=== PATIENT | female | born 1940 | race Hispanic/Latino ===

== ENCOUNTER 2020-02-01 10:41 | Emergency (ER) | payer MEDICARE ==
[~2020-02-01] VITALS: Ht 152.4 cm; Wt 65.8 kg
[2020-02-01] MEDS ORDERED: SODIUM CHLORIDE 0.9% 1000ML 1,000 ML IV STA (10:43)
[2020-02-01] MEDS ORDERED: ASPIRIN 81 MG CHEW TAB PO ONE (10:45)
[2020-02-01 10:52] LABS: BASOPHILS # (AUTO) 0.1 (0.0-0.1); BASOPHILS % 0.8 % (0.0-1.0); EOSINOPHILS # (AUTO) 0.3 (0.0-0.4); EOSINOPHILS % 2.2 % (0.0-6.0); HEMATOCRIT 38.7 % (34.2-44.1); LYMPHOCYTES # (AUTO) 1.9 (1.0-3.2); LYMPHOCYTES % 16.1 % (18.0-39.1); MEAN CORPUSCULAR HEMOGLOBIN 29.1 pg (28-32); MEAN CORPUSCULAR HGB CONC 33.6 g/dL (31-35); MEAN CORPUSCULAR VOLUME 86.6 fL (81-99); MONOCYTES # (AUTO) 0.6 (0.2-0.8); MONOCYTES % 5.2 % (4.4-11.3); NEUTROPHILS % 75.1 % (38.7-80.0); PLATELET COUNT 381 x10e3/uL (140-360); RED BLOOD COUNT 4.47 x10e6/uL (3.6-5.1); RED CELL DISTRIBUTION WIDTH 15.2 % (11.7-14.4)
[2020-02-01 11:07] LABS: CLARITY,URINE CLEAR (CLEAR); COLOR,URINE YELLOW (YELLOW)
[2020-02-01 11:08] LABS: BILIRUBIN,URINE NEGATIVE (NEGATIVE); KETONES,URINE NEGATIVE (NEGATIVE); LEUKOCYTE ESTERASE ,URINE NEGATIVE (NEGATIVE); NITRITE,URINE NEGATIVE (NEGATIVE); PROTEIN,URINE DIPSTICK NEGATIVE (NEGATIVE); URINE UROBILINOGEN 0.2 mg/dL (0.2 - 1)
[2020-02-01 11:10] LABS: ALANINE AMINOTRANSFERASE 15 IU/L (0-55); ALBUMIN 4.3 g/dL (3.5-5.0); ALBUMIN/GLOBULIN RATIO 1.1 (0.8-2.0); ALKALINE PHOSPHATASE 74 IU/L (40-150); ANION GAP 14.2 mmol/L (8-16); BLOOD UREA NITROGEN 13 mg/dL (7-26); BUN/CREATININE RATIO 18 (6-25); CALCIUM 9.7 mg/dL (8.4-10.2); CARBON DIOXIDE 26 mmol/L (22-29); CHLORIDE 99 mmol/L (98-107); CREATINE KINASE 122 IU/L (29-168); CREATININE, SERUM 0.72 mg/dL (0.57-1.11); EST GLOMERULAR FILTRATION RATE > 60 ML/MIN (60-); GLUCOSE 111 mg/dL (74-118); POTASSIUM 4.2 mmol/L (3.5-5.1); SODIUM 135 mmol/L (136-145)
[2020-02-01 11:14] LABS: BACTERIA,URINE RARE /HPF; EPITHELIAL CELLS,URINE FEW /LPF; RBC,URINE 0-5 /HPF (0-5); WBC,URINE (MAN) 0-5 /HPF (0-5)
--- NOTE | 2020-02-01 13:05 | Diagnostic Imaging Report ---
Exam: Brain MRI without IV contrast History: Right-sided numbness Comparison studies: None. Technique: Sagittal and axial T2 FS, axial DWI, axial T2*GRE, axial T1 FLAIR and axial coronal T2 FLAIR. Intravenous contrast: None Findings: Scalp: Normal in signal. No masses. Bone marrow: Normal in signal intensity. Brain sulci: Appropriate for age. Ventricles: Normal in size, no hydrocephalus. 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 Extra axial spaces: No mass, no fluid collection. Parenchyma: No mass, hemorrhage or acute ischemia. A few scattered T2 FLAIR hyperintense foci in the supratentorial white and mildly confluent T2 FLAIR hyperintense signal changes in the periventricular white matter matter are nonspecific but are most compatible with chronic microvascular ischemic changes. Small chronic lacunar infarct present the junction of the body and head of the right caudate nucleus. 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 Suprasellar region: No abnormalities. Craniocervical junction: Patent foramen magnum. No Chiari malformation. Vessels: Normal flow-voids in the arteries and sinuses. Incidental findings: Bilateral intraocular lens replacements. Small left maxillary sinus alveolar recess retention cyst. IMPRESSION: 1. No acute ischemia or other acute intracranial abnormalities. 2. Small lacunar infarct in the right caudate nucleus. 3. Mild supratentorial chronic microvascular ischemic changes. 4. 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 Recommend maxillofacial CT to further evaluate the skull base. Skull base MRI to include dedicated high-resolution/3-D T2 weighted sequence through the skull base may also further evaluate. Signed by: Dr. Carlos Manuel Vela M.D. on 02/01/2020 1:02 PM
[2020-02-01 15:01] VITALS: BP 136/82
== END 2020-02-01 15:02 | disposition home or self-care (01) ==
LOC: ER 10:41
DX: R20.2 Paresthesia of skin (principal); G62.9 Polyneuropathy, unspecified
CPT/HCPCS: 36415; 70551; 80053; 81001; 82550; 82553; 83880; 84484; 85025; 93005; 99284

== ENCOUNTER 2023-02-23 12:19 | Emergency (ER) | payer MEDICARE ==
[~2023-02-23] VITALS: Ht 154.9 cm; Wt 65.8 kg
== END 2023-02-23 14:02 | disposition home or self-care (01) ==
LOC: FSED 12:35
DX: R06.02 Shortness of breath (principal); R00.2 Palpitations; E11.65 Type 2 diabetes mellitus with hyperglycemia; I10 Essential (primary) hypertension; E78.5 Hyperlipidemia, unspecified; R94.31 Abnormal electrocardiogram [ECG] [EKG]
CPT/HCPCS: 71046; 80053; 82553; 84484; 85025; 93005; 99284

== ENCOUNTER → 2023-04-12 | Day surgery (SDC) | payer MEDICARE ==
[2023-04-11 11:47] LABS: BASOPHILS # (AUTO) 0.1 (0.0-0.1); BASOPHILS % 1.1 % (0.0-1.0); EOSINOPHILS # (AUTO) 0.5 (0.0-0.4); EOSINOPHILS % 5.2 % (0.0-6.0); HEMATOCRIT 34.8 % (34.2-44.1); HEMOGLOBIN 11.4 g/dL (12.0-16.0); LYMPHOCYTES % 23.2 % (18.0-39.1); MEAN CORPUSCULAR HEMOGLOBIN 28.1 pg (28-32); MEAN CORPUSCULAR HGB CONC 32.8 g/dL (31-35); MEAN CORPUSCULAR VOLUME 85.7 fL (81-99); MONOCYTES # (AUTO) 0.7 (0.2-0.8); MONOCYTES % 8.5 % (4.4-11.3); NEUTROPHILS # (AUTO) 5.4 (2.1-6.9); NEUTROPHILS % 61.5 % (38.7-80.0); PLATELET COUNT 342 x10e3/uL (140-360); RED BLOOD COUNT 4.06 x10e6/uL (3.6-5.1); RED CELL DISTRIBUTION WIDTH 14.9 % (11.7-14.4)
[~2023-04-12] MED LIST: ASPIRIN81 MG PO; EPHEDRINE SULFATE INJ 50 MG/ML VIAL ONE; LACTATED RINGER'S 1,000 ML ONE; LEVOTHYROXINE50 MCG PO; LIDOCAINE HCL 2% LOCAL INJ 5 ML SDV VIAL INJ ONE; LIPITOR10 MG PO; METFORMIN HCL850 MG PO; NIFEDIPINE ER30 M1 PO; OMEPRAZOLE40 MG PO; PROPOFOL IV EMULSION 10 MG/ML 20 ML VIAL ONE; VIT B12 PO
[2023-04-12 12:33] VITALS: TEMP 97.6
[2023-04-12 13:05] VITALS: BP 118/62; PULSE 85; RESP 14; O2SAT 99
== END | disposition home or self-care (01) ==
LOC: OR 09:18
PROVIDERS: ATTEND Internal Medicine Gastroenterology
DX: Z12.11 Encounter for screening for malignant neoplasm of colon (principal); D12.2 Benign neoplasm of ascending colon; D12.3 Benign neoplasm of transverse colon; K29.50 Unspecified chronic gastritis without bleeding; R13.10 Dysphagia, unspecified; K44.9 Diaphragmatic hernia without obstruction or gangrene; K63.89 Other specified diseases of intestine; K57.30 Diverticulosis of large intestine without perforation or abscess without bleeding; K59.00 Constipation, unspecified; K64.8 Other hemorrhoids; D64.9 Anemia, unspecified; I10 Essential (primary) hypertension; E78.5 Hyperlipidemia, unspecified; M06.9 Rheumatoid arthritis, unspecified; Z01.810 Encounter for preprocedural cardiovascular examination; Z01.812 Encounter for preprocedural laboratory examination; Z79.82 Long term (current) use of aspirin; Z79.84 Long term (current) use of oral hypoglycemic drugs; Z79.899 Other long term (current) drug therapy
CPT/HCPCS: 36415 ×2; 43239; 45380; 45381; 45385; 82948; 85025; 93005; J2001; J2704; J7121

== ENCOUNTER 2024-08-07 06:57 | Outpatient (RCR) | payer MEDICARE ==
[~2024-08-07 06:57] MED LIST changes: -EPHEDRINE SULFATE INJ 50 MG/ML VIAL ONE; +FAMOTIDINE40 MG PO; +GABAPENTIN300 MG PO; -LACTATED RINGER'S 1,000 ML ONE; -LIDOCAINE HCL 2% LOCAL INJ 5 ML SDV VIAL INJ ONE; +PROBIOTIC & AC1 EACH PO; -PROPOFOL IV EMULSION 10 MG/ML 20 ML VIAL ONE
== END 2024-08-10 ==
LOC: PT 06:57
PROVIDERS: ATTEND Specialist
DX: M16.0 Bilateral primary osteoarthritis of hip (principal); M17.11 Unilateral primary osteoarthritis, right knee; M47.816 Spondylosis without myelopathy or radiculopathy, lumbar region

== ENCOUNTER 2025-02-05 22:28 | Inpatient (IN) | payer MEDICARE ==
[~2025-02-05] VITALS: Ht 157.5 cm; Wt 111.6 kg
[2025-02-06] VITALS (11 sets, daily range): BP systolic 119–154; BP diastolic 49–71; PULSE 67–80; RESP 16–20; TEMP 97.5–99.3; O2SAT 96–100
[2025-02-06] MEDS: ACETAMINOPHEN 325 MG TAB PO ONE (02:46)
[2025-02-06] MEDS ORDERED: ACETAMINOPHEN 325 MG TAB PO PRN (03:00)
[2025-02-06] MEDS ORDERED: SODIUM CHLORIDE FLUSH 10 ML SYR INJ PRN (03:00)
[2025-02-06] MEDS ORDERED: DEXTROSE 50% SYRINGE 50 ML IV PRN (03:00)
[2025-02-06] MEDS ORDERED: ONDANSETRON HCL INJ 2MG/ML 2ML 2 MG/ML VIAL IV PRN (03:00)
[2025-02-06] MEDS ORDERED: JARDIANCE25 MG (04:55)
[2025-02-06] MEDS ORDERED: PROTONIX20 MG PO (04:55)
[2025-02-06] MEDS ORDERED: LISINOPRIL10 MG PO (04:55)
[2025-02-06] MEDS ORDERED: VITAMIN D250 MCG (04:55)
[2025-02-06] MEDS ORDERED: FEROSUL325 MG PO (04:55)
[2025-02-06] MEDS ORDERED: FARXIGA10 MG (04:55)
[2025-02-06] MEDS: INSULIN LISPRO 100 UNIT/1 ML 3ML VIAL SQ SCH (07:30)
[2025-02-06] MEDS ORDERED: MELATONIN 3 MG TAB PO PRN (12:15)
[2025-02-06] MEDS ORDERED: ALBUTEROL/IPRATROPIUM 3 ML NEB NEB PRN (12:15)
[2025-02-06] MEDS ORDERED: METOPROLOL TARTRATE INJ 1 MG/ML VIAL IV PRN (12:15)
[2025-02-06] MEDS ORDERED: DOCUSATE SODIUM 100 MG CAP PO PRN (12:15)
[2025-02-06] MEDS: Doxycycline IV 100 MG in SODIUM CHLORIDE 0.9% 100 ML IV SCH (13:23)
[2025-02-06 13:41] LABS: BASOPHILS # (AUTO) 0.1 (0.0-0.1); BASOPHILS % 0.7 % (0.0-1.0); EOSINOPHILS # (AUTO) 0.6 (0.0-0.4); EOSINOPHILS % 5.5 % (0.0-6.0); HEMATOCRIT 29.7 % (34.2-44.1); HEMOGLOBIN 9.1 g/dL (12.0-16.0); LYMPHOCYTES # (AUTO) 1.4 (1.0-3.2); LYMPHOCYTES % 12.8 % (18.0-39.1); MEAN CORPUSCULAR HEMOGLOBIN 22.5 pg (28-32); MEAN CORPUSCULAR HGB CONC 30.6 g/dL (31-35); MEAN CORPUSCULAR VOLUME 73.3 fL (81-99); MONOCYTES # (AUTO) 0.9 (0.2-0.8); MONOCYTES % 8.4 % (4.4-11.3); NEUTROPHILS # (AUTO) 7.9 (2.1-6.9); NEUTROPHILS % 72.1 % (38.7-80.0); PLATELET COUNT 384 x10e3/uL (140-360); RED BLOOD COUNT 4.05 x10e6/uL (3.6-5.1); RED CELL DISTRIBUTION WIDTH 20.6 % (11.7-14.4); WHITE BLOOD COUNT 11.01 x10e3/uL (4.8-10.8)
[2025-02-06 13:52] LABS: ANION GAP 14.3 mmol/L (8-16); CREATININE, SERUM 0.67 mg/dL (0.57-1.11); POTASSIUM 4.3 mmol/L (3.5-5.1)
[2025-02-06 14:23] LABS: CHOL/HDL RATIO 2.6 (3.0-3.6)
[2025-02-06] MEDS: ENOXAPARIN SOD INJ 40 MG/0.4 ML SYR SC SCH (17:14)
[2025-02-07] MEDS: SODIUM CHLORIDE 0.9% 250ML 250 ML ONE (00:35)
[2025-02-07 03:20] VITALS: BP 121/59; PULSE 65; RESP 20; TEMP 98.4; O2SAT 99
[2025-02-07 05:56] LABS: BASOPHILS # (AUTO) 0.1 (0.0-0.1); BASOPHILS % 0.9 % (0.0-1.0); EOSINOPHILS # (AUTO) 0.5 (0.0-0.4); EOSINOPHILS % 6.7 % (0.0-6.0); HEMATOCRIT 27.4 % (34.2-44.1); HEMOGLOBIN 8.6 g/dL (12.0-16.0); LYMPHOCYTES # (AUTO) 1.5 (1.0-3.2); LYMPHOCYTES % 19.9 % (18.0-39.1); MEAN CORPUSCULAR HEMOGLOBIN 22.8 pg (28-32); MEAN CORPUSCULAR HGB CONC 31.4 g/dL (31-35); MEAN CORPUSCULAR VOLUME 72.7 fL (81-99); MONOCYTES # (AUTO) 0.8 (0.2-0.8); MONOCYTES % 10.5 % (4.4-11.3); NEUTROPHILS # (AUTO) 4.7 (2.1-6.9); NEUTROPHILS % 61.5 % (38.7-80.0); PLATELET COUNT 346 x10e3/uL (140-360); RED BLOOD COUNT 3.77 x10e6/uL (3.6-5.1); RED CELL DISTRIBUTION WIDTH 20.7 % (11.7-14.4); WHITE BLOOD COUNT 7.63 x10e3/uL (4.8-10.8)
[2025-02-07 06:14] LABS: ALBUMIN 2.8 g/dL (3.5-5.0); ALBUMIN/GLOBULIN RATIO 0.8 (0.8-2.0); BILIRUBIN,TOTAL 0.5 mg/dL (0.2-1.2); CALCIUM 8.6 mg/dL (8.4-10.2); CREATININE, SERUM 0.72 mg/dL (0.57-1.11); TOTAL PROTEIN 6.1 g/dL (6.5-8.1)
[2025-02-07 08:22] VITALS: BP 137/58; PULSE 66; RESP 18; TEMP 98; O2SAT 97
[2025-02-07 09:28] VITALS: BP 153/70; PULSE 75; RESP 18; TEMP 98.1; O2SAT 100
[2025-02-07 12:35] VITALS: BP 117/52; PULSE 67; RESP 18; TEMP 98.7; O2SAT 100
[2025-02-07] MEDS ORDERED: DOXYCYCLINE HY100 MG PO (14:46)
[2025-02-07] MEDS ORDERED: CEPHALEXIN500 MG PO (14:46)
== END 2025-02-07 15:33 | disposition home or self-care (01) | DRG 638 ==
LOC: FSED 22:56 → ERHOLD 02-06 02:54 → MED/SURG2 02-06 04:06
PROVIDERS: ADMIT Internal Medicine; ATTEND Internal Medicine
DX: E11.628 Type 2 diabetes mellitus with other skin complications (principal); L03.114 Cellulitis of left upper limb; E66.01 Morbid (severe) obesity due to excess calories; Z68.42 Body mass index [BMI] 45.0-49.9, adult; D64.9 Anemia, unspecified; I10 Essential (primary) hypertension; E78.5 Hyperlipidemia, unspecified; E03.9 Hypothyroidism, unspecified; Z79.82 Long term (current) use of aspirin; Z79.890 Hormone replacement therapy; Z79.84 Long term (current) use of oral hypoglycemic drugs
CPT/HCPCS: 36415; 76536; 80048; 80053; 80061; 80076; 82948; 83036; 85025; 94799; 99284; J1650; J2543; J7050

== ENCOUNTER 2025-07-02 18:26 | Emergency (ER) | payer MEDICARE ==
[~2025-07-02] VITALS: Ht 309.9 cm; Wt 111.6 kg
[~2025-07-02 18:26] MED LIST changes: +CEPHALEXIN500 MG PO; +DOXYCYCLINE HY100 MG PO; +FARXIGA10 MG; +FEROSUL325 MG PO; +JARDIANCE25 MG; +LISINOPRIL10 MG PO; +PROTONIX20 MG PO; +VITAMIN D250 MCG
[2025-07-02 18:30] VITALS: TEMP 98.9
[2025-07-02 19:17] LABS: BASOPHILS % 0.8 % (0.0-1.0); EOSINOPHILS % 2.9 % (0.0-6.0); LYMPHOCYTES % 20.5 % (18.0-39.1); MONOCYTES % 11.6 % (4.4-11.3); NEUTROPHILS % 63.1 % (38.7-80.0); RED CELL DISTRIBUTION WIDTH 18.4 % (11.7-14.4)
[2025-07-02 19:40] LABS: EST GLOMERULAR FILTRATION RATE 89.0 ML/MIN (>=60)
[2025-07-02 20:01] LABS: CORONAVIRUS COVID-19 AG NEGATIVE (NEGATIVE)
[2025-07-02] MEDS ORDERED: AZITHROMYCIN250 MG PO (22:27)
[2025-07-02 22:30] VITALS: PULSE 68; RESP 16
[2025-07-02 23:08] VITALS: BP 146/65; PULSE 68; RESP 18; O2SAT 98
[2025-07-06] MEDS ORDERED: SODIUM CHLORI1000 MG PO (09:17)
== END 2025-07-02 22:52 | disposition home or self-care (01) ==
LOC: ER 18:48
DX: R06.02 Shortness of breath (principal); J90 Pleural effusion, not elsewhere classified; J40 Bronchitis, not specified as acute or chronic; R05.9 Cough, unspecified; I10 Essential (primary) hypertension; E11.9 Type 2 diabetes mellitus without complications; E78.5 Hyperlipidemia, unspecified; E03.9 Hypothyroidism, unspecified; R94.31 Abnormal electrocardiogram [ECG] [EKG]
CPT/HCPCS: 36415; 71045; 71250; 80053; 83880; 85025; 93005; 99284

== ENCOUNTER 2025-07-03 17:38 | Inpatient (IN) | payer MEDICARE ==
[~2025-07-03] VITALS: Ht 149.9 cm; Wt 67.1 kg
[~2025-07-03 17:38] MED LIST changes: +AZITHROMYCIN250 MG PO
[2025-07-03 19:23] VITALS: TEMP 98.1
[2025-07-03] MEDS ORDERED: MAGNESIUM/ALUMINUM/SIMETHICONE 30 ML UDC ONE (19:41)
[2025-07-03] MEDS ORDERED: LIDOCAINE VISC 2% SOLN 15 ML UDC ONE (19:41)
[2025-07-03] MEDS ORDERED: BELLADONNA ALK/PHENOBARBITAL 5 ML UDC ONE (19:41)
[2025-07-03] MEDS ORDERED: SODIUM CHLORIDE FLUSH 10 ML SYR IV PRN (19:45)
[2025-07-03] MEDS: DONNATAL/LIDOCAINE/MAALOX 30 ML SUSP PO ONE (19:47)
[2025-07-03 19:50] VITALS: PULSE 75; RESP 16
[2025-07-03 19:51] LABS: BASOPHILS % 1.0 % (0.0-1.0); EOSINOPHILS % 2.5 % (0.0-6.0); LYMPHOCYTES % 20.4 % (18.0-39.1); MONOCYTES % 9.6 % (4.4-11.3); NEUTROPHILS % 65.1 % (38.7-80.0); RED CELL DISTRIBUTION WIDTH 18.3 % (11.7-14.4)
[2025-07-03 20:16] LABS: EST GLOMERULAR FILTRATION RATE 91.0 ML/MIN (>=60)
[2025-07-03] MEDS ORDERED: IOPAMIDOL 370 MG/ML 100 ML INFUS..BTL INJ ONE (20:31)
[2025-07-03] MEDS: SODIUM CHLORIDE 0.9% 500ML 500 ML IV ONE (21:27)
[2025-07-03] MEDS ORDERED: ONDANSETRON HCL INJ 2MG/ML 2ML 2 MG/ML VIAL IV PRN (23:15)
[2025-07-04] VITALS (11 sets, daily range): BP systolic 147–165; BP diastolic 62–96; PULSE 63–71; RESP 16–20; TEMP 98–99.3; O2SAT 98–100
[2025-07-04] MEDS: SODIUM CHLORIDE 0.9% 1000ML 1,000 ML IV SCH ×2 (01:13→23:45)
[2025-07-04 11:16] LABS: BASOPHILS % 1.1 % (0.0-1.0); EOSINOPHILS % 2.8 % (0.0-6.0); LYMPHOCYTES % 16.4 % (18.0-39.1); MONOCYTES % 8.7 % (4.4-11.3); NEUTROPHILS % 69.6 % (38.7-80.0); RED CELL DISTRIBUTION WIDTH 18.5 % (11.7-14.4)
[2025-07-04 11:42] LABS: EST GLOMERULAR FILTRATION RATE 91.0 ML/MIN (>=60)
[2025-07-04] MEDS ORDERED: DEXTROSE 50% SYRINGE 50 ML IV PRN (20:00)
[2025-07-04] MEDS: MELATONIN 3 MG TAB PO SCH (20:50)
[2025-07-04] MEDS: ATORVASTATIN 10 MG TAB PO SCH (20:51)
[2025-07-04] MEDS: INSULIN LISPRO 100 UNIT/1 ML 3ML VIAL SQ SCH (20:59)
[2025-07-05] VITALS (10 sets, daily range): BP systolic 132–180; BP diastolic 62–83; PULSE 63–81; RESP 17–18; TEMP 97.5–98.4; O2SAT 97–100
[2025-07-05] MEDS: HYDRALAZINE HCL 20 MG/ML VIAL IV PRN (01:50)
[2025-07-05] MEDS: LEVOTHYROXINE SODIUM 112 MCG TAB PO SCH (05:27)
[2025-07-05 07:44] LABS: EST GLOMERULAR FILTRATION RATE 93.0 ML/MIN (>=60)
[2025-07-05] MEDS: PANTOPRAZOLE SOD 40 MG TABEC PO SCH (09:07)
[2025-07-05] MEDS: NIFEDIPINE CR 30 MG TAB PO SCH (09:08)
[2025-07-05] MEDS: GABAPENTIN 300 MG CAP PO SCH (09:08)
[2025-07-05] MEDS: FERROUS SULFATE 325 MG TAB PO SCH (09:08)
[2025-07-05] MEDS: LISINOPRIL 10 MG TAB PO SCH (09:09)
[2025-07-05] MEDS: ACETAMINOPHEN 325 MG TAB PO PRN (20:15)
[2025-07-06 07:35] LABS: BASOPHILS % 1.0 % (0.0-1.0); EOSINOPHILS % 5.7 % (0.0-6.0); LYMPHOCYTES % 19.1 % (18.0-39.1); MONOCYTES % 9.7 % (4.4-11.3); NEUTROPHILS % 62.8 % (38.7-80.0); RED CELL DISTRIBUTION WIDTH 18.7 % (11.7-14.4)
[2025-07-06 08:00] LABS: EST GLOMERULAR FILTRATION RATE 92.0 ML/MIN (>=60)
[2025-07-06 08:58] VITALS: BP 169/68; PULSE 68; RESP 18; TEMP 97.2; O2SAT 99
[2025-07-06] MEDS ORDERED: SODIUM CHLORI1000 MG PO (09:17)
[2025-07-06 10:50] VITALS: PULSE 68
[2025-07-06 10:51] VITALS: BP 169/68
== END 2025-07-06 12:45 | disposition home or self-care (01) | DRG 641 ==
LOC: ER 19:28 → ERHOLD 23:12 → MED/SURG2 07-04 00:14 → OBSVTOIN 07-05 11:24
PROVIDERS: ADMIT Internal Medicine; ATTEND Internal Medicine
DX: E87.1 Hypo-osmolality and hyponatremia (principal); J90 Pleural effusion, not elsewhere classified; J98.11 Atelectasis; L76.34 Postprocedural seroma of skin and subcutaneous tissue following other procedure; E11.9 Type 2 diabetes mellitus without complications; D64.9 Anemia, unspecified; E78.5 Hyperlipidemia, unspecified; E03.9 Hypothyroidism, unspecified; K29.70 Gastritis, unspecified, without bleeding; I10 Essential (primary) hypertension; R51.9 Headache, unspecified; Z79.84 Long term (current) use of oral hypoglycemic drugs; Z79.82 Long term (current) use of aspirin; Z79.890 Hormone replacement therapy; Y84.8 Other medical procedures as the cause of abnormal reaction of the patient, or of later complication, without mention of misadventure at the time of the procedure
CPT/HCPCS: 36415; 70450; 70491; 71045; 80048; 80053; 82948; 83690; 84484; 85025; 93005; 96372; 99284; G0378; J0360; J2470; J7030; J7040; Q9967

== ENCOUNTER 2025-07-09 12:50 | Emergency (ER) | payer MEDICARE ==
[~2025-07-09] VITALS: Ht 157.5 cm; Wt 67.1 kg
[~2025-07-09 12:50] MED LIST changes: +SODIUM CHLORI1000 MG PO
[2025-07-09 13:48] VITALS: TEMP 97.3
[2025-07-09 16:33] LABS: BASOPHILS % 0.6 % (0.0-1.0); EOSINOPHILS % 4.2 % (0.0-6.0); LYMPHOCYTES % 14.7 % (18.0-39.1); MONOCYTES % 9.7 % (4.4-11.3); NEUTROPHILS % 69.3 % (38.7-80.0); RED CELL DISTRIBUTION WIDTH 19.6 % (11.7-14.4)
[2025-07-09 16:46] LABS: EST GLOMERULAR FILTRATION RATE 84.0 ML/MIN (>=60)
[2025-07-09 17:00] VITALS: PULSE 70; RESP 16; O2SAT 97
[2025-07-09] MEDS ORDERED: DOXYCYCLINE HY100 MG PO (17:32)
[2025-07-09] MEDS ORDERED: AMOX TR-K CLV1 EAC2 PO (17:32)
== END 2025-07-09 17:45 | disposition home or self-care (01) ==
LOC: MERGE 13:50 → ER 13:50
DX: J18.9 Pneumonia, unspecified organism (principal); I10 Essential (primary) hypertension; E11.9 Type 2 diabetes mellitus without complications; E03.9 Hypothyroidism, unspecified; E78.5 Hyperlipidemia, unspecified; Z79.84 Long term (current) use of oral hypoglycemic drugs
CPT/HCPCS: 36415; 71045; 80053; 83690; 84484; 85025; 93005; 99284